=== PATIENT | female | born 1935 | race Caucasian/White ===

== ENCOUNTER 2024-08-06 02:31 | Inpatient (IN) | payer MEDICARE, SELFPAY ==
[2024-08-06] VITALS (8 sets, daily range): BP systolic 145–168; BP diastolic 68–89; PULSE 58–101; RESP 14–20; TEMP 36.1–36.5; O2SAT 95–100; BMI 30.1
--- NOTE | ~2024-08-06 | CT_ITS ---
CT abdomen pelvis w con Ordering provider: Carter Chester MD History: 89 years Female with . Abdominal pain, vomiting blood . Comparison: None. Technique: CT abdomen and pelvis with IV and without oral contrast. Automated exposure control and it erative reconstruction technique were employed. The dose-length product was 490.04 mGy-cm. Findings: VISUALIZED LOWER CHEST: Minimal dependent atelectatic changes.. UPPER ABDOMINAL ORGANS: Liver: Normal. Gallbladder: Normal. Spleen: Normal. Stomach/duodenum: Large paraesophageal hernia with organoaxial rotation of the stomach which is fluid -filled. Gastric outlet obstruction is not excluded. Further evaluation advised. Pancreas: Atrophic. Adrenals: Normal. Kidneys: Minimal fullness of the renal pelvis bilaterally. No definite ureteric stones. PELVIC ORGANS: The bladder is normal. BOWEL AND MESENTERY: Colon: No evidence of diverticulitis. Appendix is normal. Small Bowel: Normal. No obstruction. Peritoneum/mesentery: No free air or free fluid. No mesenteric lymphadenopathy. RETROPERITONEUM: Mild atheromatous disease of the abdominal aorta. No retroperitoneal lymphadenopat hy. MUSCULOSKELETAL: Superficial soft tissues: The superficial soft tissues are normal. Bones: Age appropriate degenerative changes of the spine. IMPRESSION: 1. Paraesophageal hernia with organoaxial rotation of the stomach and possible outlet obstruction fu rther evaluation advised. 2. Minimal fullness of the renal pelvis bilaterally with no definite stones. Follow-up advised. 3. No evidence of appendicitis, diverticulitis or intestinal obstruction Reviewed, dictated and finalized at location A. IMPRESSION: 1. Paraesophageal hernia with organoaxial rotation of the stomach and possible outlet obstruction further evaluation advised. 2. Minimal fullness of the renal pelvis bilaterally with no definite stones. F ollow-up advised. 3. No evidence of appendicitis, diverticulitis or intestinal obstruction
--- NOTE | ~2024-08-06 | XR_ITS ---
EXAMINATION: XR UGI w esoph water soluble DATE: 08/07/2024 09:43 INDICATION: Possible gastric outlet obstruction. Vomiting dark blood. TECHNIQUE: The patient drank water-soluble contrast. Fluoroscopic spot radiographs of the hypopharynx , esophagus, stomach and proximal small bowel were obtained. A total of 1101 fluoroscopic images were recorded. Fluoroscopy exposure time was 2.2 minutes. Total DAP was 15.438 mGycm^2. COMPARISON: CT dated 08/06/24 FINDINGS: The pharynx is symmetric and without evidence of mass lesion or mucosal irregularity. There is a prom inent nonobstructing cricopharyngeus muscle. The esophagus is normal without mass or stricture. Esoph ageal motility is within normal limits for age. There is a large sliding-type hiatal hernia which con tains the entire stomach. Contrast passes into the normal-appearing proximal small bowel with no mayela gaye outlet obstruction. There was no gastroesophageal reflux with provocative maneuvers. The stomach and proximal small bowel are otherwise unremarkable. IMPRESSION: 1. Large sliding-type hiatal hernia without evidence of gastroesophageal reflux or gastric outlet obs truction. Reviewed, dictated and finalized at location A. IMPRESSION: 1. Large sliding-type hiatal hernia without evidence of gastroesophageal reflux or gastric outlet obstruction.
[2024-08-06 03:34] LABS: Basophils Absolute Auto 0.1 K/mm3 (0.0-0.1); Basophils Percent Auto 0.7 % (0.2-1.2); Eosinophils Absolute Auto 0.1 K/mm3 (0-0.3); Eosinophils Percent Auto 0.9 % (0-4.4); Hematocrit 39.3 % (37.0-47.0); Hemoglobin 12.5 g/dL (12.0-15.0); Immature Granulocyte Absolute 0.02 K/mm3 (0.00-0.031); Immature Granulocyte Percent A 0.2 % (0-0.5); Lymphocytes Absolute Auto 1.22 K/mm3 (0.9-3.2); Lymphocytes Percent Auto 14.4 % (18.3-44.2); Mean Corpuscular HGB Conc 31.8 g/dl (32-36); Mean Corpuscular Hemoglobin 29.3 pg (26-34); Mean Platelet Volume 9.5 fl (7.4-10.4); Monocytes Absolute Auto 0.8 K/mm3 (0.1-0.6); Monocytes Percent Auto 9.8 % (2.6-8.5); Neutrophils Absolute Auto 6.3 K/mm3 (1.3-6.7); Platelet Count Result 245 k/mm3 (150-375); Red Blood Count 4.27 M/mm3 (4.2-5.4); Red Cell Distribution Width 12.5 % (11.5-14.5); White Blood Count 8.5 K/mm3 (4.5-10.0)
[2024-08-06] MEDS: SODIUM CHLORIDE 0.9% IV 1,000 ML 999 ML IV CONT (03:40)
[2024-08-06] MEDS: PANTOPRAZOLE SODIUM IV 40 MG VIAL IV PUSH ×2 (03:40→21:06)
[2024-08-06] MEDS: ONDANSETRON INJ 4 MG/2 ML VIAL IV PUSH (03:40)
[2024-08-06 03:43] LABS: Alanine Aminotransferase 16 U/L (6-35); Albumin Level 4.1 g/dL (3.5-5.1); Alkaline Phosphatase 74 U/L (38-126); Anion Gap 9 mmol/L (4-12); Aspartate Amino Transferase 28 U/L (14-36); Bilirubin,Total 0.5 mg/dL (0.2-1.3); Blood Urea Nitrogen 16 mg/dL (7-17); Calcium 8.9 mg/dL (8.4-10.2); Carbon Dioxide 26 mmol/L (22-30); Chloride 100 mmol/L (98-107); Estimated CRCL calculation 28 ml/min; Estimated Glomerular Filt Rate 47; Glucose 127 mg/dL (65-110); Lipase 744 U/L (23-300); Potassium 3.7 mmol/L (3.4-5.0); Sodium 135 mmol/L (137-145)
--- OUTSIDE RECORDS SUMMARY | 2024-08-06 03:50 | XMS_ITS | Encounter Summary ---
Author Organization [facility] Address [address] [place] [address] Care Team Providers Care Drainlayer Name Role Phone Taty Baker APRN-HAKAN Primary Care Provider + Reinaldo Solorzano MD Unavailable Pato Munguia MD Unavailable [phone] Encounter Details Date Type Department Care Team (Late Contact Info) Description 10/22/[address] [phone] Taty Baker APRN-HAKAN [address] [place] [address] Social History Tobacco Use Types Packs/Day Years Used Date Smoking Tobacco: Former Cigarettes Smokeless Tobacco: Never Alcohol Use Standard Drinks/Week Comments No 0 (1 standard drink = 0.6 oz pur e alcohol) PHQ-2 Answer Date Recorded Patient Health Questionnaire-2 Score 0 10/20/2023 Comments No Sex and Gender Information Value Date Recorded Sex Assigned at Not on file 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 Gender Identity Not on file Sexual Orientation Not on file documented as of this encounter Plan of Treatment Upcoming Encounters Date Type Department Care Team (Late Contact Info) Description 08/30/2024 8:15 AM CDT Office Visit [address] [phone] Taty Baker APRN-CNP [address] [place] [phone] documented as of this encounter Visit Diagnoses Not on filedocumented in this encounter Care Teams Drainlayer Relationship Specialty Start Date End Date Taty Baker APRN-HAKAN PCP - General Nurse Practitioner Family 06/20/21 Reinaldo Solorzano MD [address] [place] [phone] Orthopedic Surgery Orthopedic Surgery 10/20/23 Pato Munguia MD [address] [id number] Gastroenterology 10/20/23 documented as of this encounter
--- OUTSIDE RECORDS SUMMARY | 2024-08-06 03:50 | XMS_ITS | Continuity of Care Document ---
Author Organization [facility] Address [address] [place] [address] Phone Care Team Providers Care Active Directory Systems Administrator Name Role Phone Gardenia Baumann MD Unavailable Unavailable Allergies, Adverse Reactions, Alerts Substance Reaction Status Criticality No Known Allergies Active No Inform ation Medications Medication Instructions Dosage Effective Dates (start - stop) Status Comments ATORVASTATIN CALCIUM (unknown strength) Not Available - Active Metamucil 3.4 gram/5.4 gram oral powder - Active Vitamin D3 1,000 unit capsule - Active Vitamin B-12 ER 2,000 mcg tablet,extended release - Active CALCIUM (unknown strength) Not Available - Active CELEXA (unknown strength) Not Available - Active LEVOTHYROXINE SODIUM (unknown strength) Not Available - Active LORAZEPAM (unknown strength) Not Available - Active Procedures Procedure Date OFFICE/OUTPATIENT VISIT, EST DRAIN/INJECT, JOINT/BURSA Kenalog Triamcinolone acetonide inj Knee X-Ray 4 Or More Views (AP, LAT, OBL , OBL) PHE Costs Inj Facet Lumbar Or Sacral 1 Level Inj Facet Lumbar Or Sacral 2nd Level Jan Inj Facet Lumbar Or Sacral 3rd Or More L evels OFFICE/OUTPATIENT VISIT, EST SI Joint Injection Arthrogram Of SI Join t OFFICE/OUTPATIENT VISIT, EST MRI LUMBAR SPINE W/O DYE OFFICE/OUTPATIENT VISIT, EST INJ FORAMEN EPIDURAL L/S INJ FORAMEN EPIDURAL ADD-ON OFFICE/OUTPATIENT VISIT, EST Bonus OFFICE/OUTPATIENT VISIT, EST DRAIN/INJECT, JOINT/BURSA Kenalog Triamcinolone acetonide inj Knee X-Ray 3 Views (AP, LAT, Merchant) J Knee X-Ray 3 Views (AP, LAT, Merchant) J POSTOP FOLLOW-UP VISIT REMOVAL OF KNEECAP KO Adj Joints Prefab Off The Shelf INJ TRIGGER POINT, /2 MUSCL Kenalog Triamcinolone acetonide inj Ultrasound Guidance For Injection Aspira tion Or Biopsy Pre Operative Visit OFFICE/OUTPATIENT VISIT, EST OFFICE/OUTPATIENT VISIT, EST Knee X-Ray 3 Views (AP, LAT, Merchant) O OFFICE/OUTPATIENT VISIT, EST DRAIN/INJECT, JOINT/BURSA Celestone 3 MG Betamethasone acet&sod ph osp INJ TRIGGER POINT, /2 MUSCL Ultrasound Guidance For Injection Aspira tion Or Biopsy Kenalog Triamcinolone acetonide inj OFFICE/OUTPATIENT VISIT, EST Wrist X-Ray 2 View (PA, Clenched Fists) OFFICE/OUTPATIENT VISIT, EST DESTROY LUMB/SAC FACET JNT DESTROY L/S FACET JNT ADDL DESTROY LUMB/SAC FACET JNT DESTROY L/S FACET JNT ADDL OFFICE/OUTPATIENT VISIT, EST POSTOP FOLLOW-UP VISIT Wrist X-Ray 2 View (PA, Clenched Fists) Suede Lacing Wrist Forearm Inj Facet Lumbar Or Sacral 1 Level Inj Facet Lumbar Or Sacral 2nd Level Mar Inj Facet Lumbar Or Sacral 3rd Or More L evels Inj Facet Lumbar Or Sacral 1 Level Inj Facet Lumbar Or Sacral 2nd Level Mar Inj Facet Lumbar Or Sacral 3rd Or More L evels OFFICE/OUTPATIENT VISIT, EST APPLICATION OF FOREARM CAST SACAF Cast sup sht arm adult fbrgl Wrist X-Ray 2 View (PA, Clenched Fists) OFFICE/OUTPATIENT VISIT, EST POSTOP FOLLOW-UP VISIT Wrist X-Ray 2 View (PA, Clenched Fists) OFFICE/OUTPATIENT VISIT, EST Wrist X-Ray 2 View (PA, Clenched Fists) TREAT FRACTURE RADIUS/ULNA SACAF Cast sup sht arm adult fbrgl PT EVALUATION Pain doc pos and plan Doc funct and care plan PT FALLS ASSESS-DOCD LE1/YR Mobility Current Status Mobility Goal Status THERAPEUTIC ACTIVITIES SELF CARE MNGMENT TRAINING OFFICE/OUTPATIENT VISIT, EST Inj Facet Lumbar Or Sacral 1 Level Inj Facet Lumbar Or Sacral 2nd Level Nov Inj Facet Lumbar Or Sacral 3rd Or More L evels Inj Facet Lumbar Or Sacral 1 Level Inj Facet Lumbar Or Sacral 2nd Level Nov Inj Facet Lumbar Or Sacral 3rd Or More L evels MRI LUMBAR SPINE W/O DYE OFFICE/OUTPATIENT VISIT, EST OFFICE/OUTPATIENT VISIT, EST Inj Facet Lumbar Or Sacral 1 Level Inj Facet Lumbar Or Sacral 2nd Level August Inj Facet Lumbar Or Sacral 3rd Or More L evels POSTOP FOLLOW-UP VISIT Knee X-Ray 3 Views (AP, LAT, Merchant) M OFFICE/OUTPATIENT VISIT, NEW Lumbar X-Ray 2 Or 3 Views (AP, LAT) POSTOP FOLLOW-UP VISIT Knee X-Ray 3 Views (AP, LAT, Merchant) M POSTOP FOLLOW-UP VISIT Knee X-Ray 3 Views (AP, LAT, Merchant) F TOTAL KNEE ARTHROPLASTY DOC ORDER GIVEN STOP ANTIBIO DOC ORDER GIVEN VTE PROPHYLX Pre Operative Visit Knee X-Ray 2 Views (AP, LAT) X-RAYS, BONE LENGTH STUDIES OFFICE/OUTPATIENT VISIT, EST OFFICE/OUTPATIENT VISIT, EST MRI JNT OF LWR EXTRE W/O DYE OFFICE/OUTPATIENT VISIT, EST OFFICE/OUTPATIENT VISIT, EST DRAIN/INJECT, JOINT/BURSA Kenalog Triamcinolone acetonide inj THERAPEUTIC EXERCISES Elec stim other than wound THERAPEUTIC EXERCISES Elec stim other than wound Body Pos Current Status Body Pos Goal Status Pain doc pos and plan Doc funct and care plan PT FALLS ASSESS-DOCD LE1/YR PT EVALUATION THERAPEUTIC ACTIVITIES Elec stim other than wound DRAIN/INJECT, JOINT/BURSA Synvisc Per 1MG DRAIN/INJECT, JOINT/BURSA Synvisc Per 1MG OFFICE/OUTPATIENT VISIT, EST DRAIN/INJECT, JOINT/BURSA Synvisc Per 1MG Knee X-Ray 4 Or More Views (AP, LAT, OBL , OBL) OFFICE/OUTPATIENT VISIT, NEW DRAIN/INJECT, JOINT/BURSA Kenalog Triamcinolone acetonide inj Knee X-Ray 4 Or More Views (AP, LAT, OBL , OBL) Advance Directives Directive Yes / No Effective Date File Name Life Support Not Answered N/A N/A Other Directive No N/A N/A WARNING:The information contained in this section is historical and is provided for information only and does not constitute a legal document or any assurance that the information is still accurate. Please verify the information with the iqbal of the legal document before using it for clinical purposes. Encounters Encounter Description Practice Location Reason(s) For Visit Diagnoses Date Provider Providers Copied on Encounter [facility], [address] [place] [address], [id number], tel:[phone] [facility] No Information 0 Pastor Varner. [address] [place] [address], [address], [id number], . tel:[phone] OFFICE/OUTPA TIENT VISIT, [facility], [address] [place] [address], [id number], tel:[phone] [facility] Primary osteoarthritis of left kneeStatus post total right knee replacement 0 Pastor Varner. [address] [place] [address], [id number], . tel:[phone] Referring Provider: Gardenia Baumann, [address] [place] [address], [id number]. tel:[phone] [facility], [address] [place] [address], [id number], tel:[phone] [facility] No Information 9 Connor Ariza. [address] [place], [place], [id number], [place]. tel:[phone] Referring Provider: To Ryan, [address] [place], [address]. tel:[phone] OFFICE/OUTPA TIENT VISIT, EST [facility], [address] [place] [address], [id number], [place] tel:[phone] [facility] LumbagoOther intervertebral disc degeneration of lumbar regionSacroili itis, not elsewhere classifiedSpon dylosis without myelopathy or radiculopathy, lumbar region 9 Connor Ariza. [address] [place], [id number], [place]. tel:[phone] Referring Provider: Delilah Murdock, [facility] [employer] [address] [place] [address], [address]. tel:[phone] [facility], [address] [place] [address], [id number], [place] tel:[phone] [facility] No Information Connor Ariza. [address], [place], [place], [id number], [place]. tel:[phone] Referring Provider: To Ryan, [address], [place], [address]. tel:[phone] OFFICE/OUTPA TIENT VISIT, EST [facility], [address] [place] [address], [id number], [place] tel:[phone] [facility] LumbagoAdolesc ent idiopathic scoliosis of lumbar regionOther intervertebral disc degeneration of lumbar regionSacroili itis, not elsewhere classifiedSpon dylosis without myelopathy or radiculopathy, lumbar region 9 Connor Ariza. [address], [place], [place], [id number], [place]. tel:[phone] Referring Provider: Delilah Murdock, [facility] [facility], [place], [address]. tel:[phone] [facility], [address] [place] [address], [id number], [place] tel:[phone] [facility] No Information Connor Ariza. [address] [place], [id number], [place]. tel:[phone] Referring Provider: To Ryan, [address] [place], [address]. tel:[phone] OFFICE/OUTPA TIENT VISIT, EST [facility], [address] [place] [address], [id number], [place] tel:[phone] [facility] LumbagoOther intervertebral disc degeneration of lumbar regionAdolesce nt idiopathic scoliosis of lumbar regionSpondylo sis without myelopathy or radiculopathy, lumbar region Connor Ariza. [address] [place], [id number], [place]. tel:[phone] Referring Provider: Self Referred, [address] [address], [place], [address]. tel:[phone] [facility], [address] [place] [address], [id number], [place] tel:[phone] [facility] No Information Connor Ariza. [address] [place], [id number], [place]. tel:[phone] Referring Provider: To Ryan, [address] [place], [address]. tel:[phone] OFFICE/OUTPA TIENT VISIT, EST [facility], [address] [place] [address], [id number], [place] tel:[phone] [facility] LumbagoAdolesc ent idiopathic scoliosis of lumbar regionOther intervertebral disc degeneration of lumbar regionSacroili itis, not elsewhere classifiedSpon dylosis without myelopathy or radiculopathy, lumbar region Connor Ariza. [address] [facility] [place], [id number], [place]. tel:[phone] Referring Provider: Self Referred, [address] [address], [place], [address]. tel:[phone] [facility], [address] [place] [address], [id number], [place] tel:[phone] [facility] Status post total right knee replacement 8 Pastor Aliciandy. [address] [place] [address], [place] [address], [place], [place], [id number], [place]. tel:[phone] OFFICE/OUTPA TIENT VISIT, EST [facility], [address] [place] [address], [id number], [place] tel:[phone] [facility] Closed displaced transverse fracture of right patella, sequelaStatus post total right knee replacementPri randell osteoarthritis of left knee Pastor Varner. [address] [place] [address], [place] [address], [place], [place], [id number], [place]. tel:[phone] Referring Provider: Delilah Murdock, [address] [place] [address], [address]. tel:[phone] [facility], [address] [place] [address], [id number], [place] tel:[phone] [facility] Status post total right knee replacementClo sed displaced transverse fracture of right patella, sequela 7 Pastor Varner. [address] [place] [address], [facility] [address], [place], [place], [id number], [place]. tel:[phone] Referring Provider: Delilah Murdock, [address] [place] [address] [place] [address], [address]. tel:[phone] [facility], [address] [place] [address], [id number], [place] tel:[phone] [facility] No Information Pastor Varner. [facility], [address], [id number], [place]. tel:[phone] Referring Provider: Delilah Murdock, [address] [facility] [address], [place], [address]. tel:[phone] [facility], [address] [place] [address], [id number], [place] tel:[phone] [facility] No Information Pastor Varner. [address] [place] [address], [place] [address], [place], [id number], [place]. tel:[phone] Referring Provider: Gardenia Baumann, [address] [place] [address] Suite [facility], [place], [address]. tel:[phone] [facility], [address] [place] [address], [id number], [place] tel:[phone] [facility] Adolescent idiopathic scoliosis of lumbar regionLumbagoS acroiliitis, not elsewhere classified Connor Ariza. [address] [place] [address], [id number], [place]. tel:[phone] Referring Provider: Self Referred, [address] [address], [place], [address]. tel:[phone] [facility], [address] [place] [address], [id number], [place] tel:[phone] [facility] Closed displaced transverse fracture of right patella, initial encounterStatu s post total right knee replacement Pastor Varner. [address] [place] [address], [place] [address], [place], [place], [id number], [place]. tel:[phone] Referring Provider: Delilah Murdock, [address] [facility] [address], [place], [address]. tel:[phone] OFFICE/OUTPA TIENT VISIT, [facility], [address] [place], [place], [id number], [place] tel:[phone] [facility] Adolescent idiopathic scoliosis of lumbar regionLumbagoS acroiliitis, not elsewhere classifiedSpin al enthesopathy of lumbosacral region 7 Connor Ariza. [address] [facility] [address], [place], [place], [id number], [place]. tel:[phone] Referring Provider: Self Referred, [address] [address], [place], [address]. tel:[phone] OFFICE/OUTPA TIENT VISIT, [facility], [address] [place] [address], [id number], [place] tel:[phone] [facility] Status post total right knee replacementClo sed displaced transverse fracture of right patella, initial encounter 7 Pastor Varner. [address] [facility], [address], [place], [place], [id number], [place]. tel:[phone] Referring Provider: Gardenia Baumann, [address] [facility] [address], [place], [address]. tel:[phone] OFFICE/OUTPA TIENT VISIT, [facility], [address] [place], [place], [id number], [place] tel:[phone] [facility] Closed Colles' fracture of right radius, sequela 7 Mariya Encarnacion. [address] [place] [address], [id number], [place]. tel:[phone] Referring Provider: Self Referred, [address] [address], [place], [address]. tel:[phone] [facility], [address] [place] [address], [id number], [place] tel:[phone] [facility] LumbagoSpondyl osis without myelopathy or radiculopathy, lumbar regionSacroili itis, not elsewhere classifiedSpin al enthesopathy of lumbosacral region Connor Ariza. [address], [place], [place], [id number], [place]. tel:[phone] Referring Provider: Rodriguez Lopez MD, [address] [facility] [address], [place], [address]. tel:[phone] OFFICE/OUTPA TIENT VISIT, EST [facility], [address] [place] [address], [id number], [place] tel:[phone] [facility] No Information Mariya Encarnacion. [address] [place] [address] [place], [place], [id number], [place]. tel:[phone] Referring Provider: Cameron Jones, [address] [place] [address] [place], [address]. tel:[phone] OFFICE/OUTPA TIENT VISIT, EST [facility], [address] [place] [address], [id number], [place] tel:[phone] [facility] No Information 7 Connor Ariza. [address], [place], [place], [id number], [place]. tel:[phone] Referring Provider: Self Referred, [address] [address], [place], [address]. tel:[phone] [facility], [address] [place] [address], [id number], [place] tel:[phone] [facility] No Information 7 Connor Ariza. [address] [place], [place], [id number], [place]. tel:[phone] Referring Provider: To Ryan, [address] [facility], [place], [address]. tel:[phone] [facility], [address] [place] [address], [id number], tel:[phone] [facility] No Information 7 Connor Ariza. [address] [place], [place], [id number], [place]. tel:[phone] Referring Provider: To Ryna, [address] [facility] [address], [place], [address]. tel:[phone] OFFICE/OUTPA TIENT VISIT, EST [facility], [address] [place] [address], [id number], tel:[phone] [facility] LumbagoAdolesc ent idiopathic scoliosis of lumbar regionSpondylo sis without myelopathy or radiculopathy, lumbar regionOther intervertebral disc degeneration of lumbar region Shefali Garza. [address], [place], [place], [id number], [place]. tel:[phone] Referring Provider: To Ryan, [address] [facility], [place], [address]. tel:[phone] [facility], [address] [place] [address], [id number], [place] tel:[phone] [facility] Closed Colles' fracture of right radius with routine healing 7 Mariya Encarnacion. [facility] [place], [id number], [place]. tel:[phone] Referring Provider: Alysha Meraz, [facility] [address], [place], [address]. tel:[phone] [facility], [address] [place] [address] [place], [id number], tel:[phone] [facility] No Information Mariya Encarnacion. [facility] Ana María Lemons[place], [id number], . tel:[phone] Referring Provider: To Ryan, [address] [place] [address] [place], [address]. tel:[phone] [facility], [address] [place] [address], [id number], tel:[phone] [facility] No Information Connor Ariza. [facility] [address] [facility] [place], [place], [id number], [place]. tel:[phone] Referring Provider: To Ryan, [address] [place] [address], [address]. tel:[phone] [facility], [address] [place] [address], [id number], tel:[phone] [facility] No Information Connor Ariza. [address] [place] [address], [id number], [place]. tel:[phone] Referring Provider: To Ryan, [address] [facility] [place], [address]. tel:[phone] OFFICE/OUTPA TIENT VISIT, EST [facility], [address] [place] [address], [id number], tel:[phone] [facility] Closed Colles' fracture of right radius with routine healing Mariya Encarnacion. [facility] [place] [place], [id number], [place]. tel:[phone] Referring Provider: Cameron Jones, [place] [facility] [place], [address]. tel:[phone] OFFICE/OUTPA TIENT VISIT, EST [facility], [address] [place] [address], [id number], [place] tel:[phone] [facility] Adolescent idiopathic scoliosis of lumbar regionLumbagoO ther intervertebral disc degeneration of lumbar regionSpondylo sis without myelopathy or radiculopathy, lumbar region - 6 Ryan To. [address] [facility] A, [place], [place], [id number], [place]. tel:[phone] Referring Provider: Self Referred, [address] [address], [place], [address]. tel:[phone] [facility], [address] [place] [address], [id number], [place] tel:[phone] [facility] Closed Colles' fracture of right radius, initial encounter 6 Mariya Encarnacion. [facility] [address], [place], [place], [id number], [place]. tel:[phone] Referring Provider: Cameron Jones, [facility] [address], [place], [address]. tel:[phone] OFFICE/OUTPA TIENT VISIT, EST [facility], [address] [place] [address], [id number], [place] tel:[phone] [facility] Closed Colles' fracture of right radius, initial encounter -201 6 Mariyamaikol Tinocole. [facility] [address], [place], [place], [id number], [place]. tel:[phone] Referring Provider: Siomara Braden, [address] [facility] [address], [place], [address]. tel:[phone] [facility], [address] [place] [address], [id number], [place] tel:[phone] [facility] No Information 6 Shefali Novoana. [address], [place], [place], [id number], [place]. tel:[phone] [facility], [address] [place] [address], [id number], [place] tel:[phone] [facility] Lumbago Sep-2 6 [place] Silvestre Acevedo. [address], [place], [place], [id number], [place]. tel:[phone] Referring Provider: To Ryan, [address] [place] [facility] [place], [address]. tel:[phone] OFFICE/OUTPA TIENT VISIT, EST [facility], [address] [place] [address], [id number], [place] tel:[phone] [facility] LumbagoSpondyl osis without myelopathy or radiculopathy, lumbar regionOther intervertebral disc degeneration of lumbar regionAdolesce nt idiopathic scoliosis of lumbar region Sep- 6 Shefali Novoana. [address], [place], [place], [id number], [place]. tel:[phone] Referring Provider: To Ryan, [address] [place] [facility] [place], [address]. tel:[phone] [facility], [address] [place] [address], [id number], [place] tel:[phone] [facility] No Information 6 Connor Ariza. [address] [facility] [place], [place], [id number], [place]. tel:[phone] Referring Provider: To Ryan, [address] [place] [facility] [place], [address]. tel:[phone] [facility], [address] [place] [address], [id number], [place] tel:[phone] [facility] No Information 6 Connor To. [address] [facility] [place], [place], [id number], [place]. tel:[phone] Referring Provider: To Ryan, [address] [facility] [place], [address]. tel:[phone] [facility], [address] [place] [address], [id number], [place] tel:[phone] [facility] No Information Ryan To. [address] [facility] [place], [id number], [place]. tel:[phone] Referring Provider: To Ryan, [address] [facility] [place], [address]. tel:[phone] OFFICE/OUTPA TIENT VISIT, EST [facility], [address] [place] [address], [id number], [place] tel:[phone] [facility] Adolescent idiopathic scoliosis of lumbar regionLumbagoO ther intervertebral disc degeneration of lumbar regionSpondylo sis without myelopathy or radiculopathy, lumbar region 6 Ryan To. [address] [facility] [place], [place], [id number], [place]. tel:[phone] Referring Provider: Self Referred, [address] [address], [place], [address]. tel:[phone] OFFICE/OUTPA TIENT VISIT, EST [facility], [address] [place] [address], [id number], [place] tel:[phone] [facility] LumbagoSpondyl osis without myelopathy or radiculopathy, lumbar regionOther intervertebral disc degeneration of lumbar regionAdolesce nt idiopathic scoliosis of lumbar region 6 Shefali Garza. [address], [place], [place], [id number], [place]. tel:[phone] Referring Provider: To Ryan, [address] [facility] [place], [address]. tel:[phone] [facility], [address] [place] [address], [id number], [place] tel:[phone] [facility] No Information 6 Connor Ariza. [address] [facility] [place], [id number], [place]. tel:[phone] Referring Provider: Self Referred, [address] [address], [place], [address]. tel:[phone] [facility], [address] [place] [address], [id number], [place] tel:[phone] [facility] Status post total right knee replacement 6 Pastor Varner. [facility], [address], [place], [place], [id number], [place]. tel:[phone] Referring Provider: Rodriguez Lopez MD, [address] [place] [address], [place], [address]. tel:[phone] OFFICE/OUTPA TIENT VISIT, [facility], [address] [place] [address], [id number], [place] tel:[phone] [facility] LumbagoOther intervertebral disc degeneration of lumbar regionSpondylo sis without myelopathy or radiculopathy, lumbar regionAdolesce nt idiopathic scoliosis of lumbar region 6 Connor Ariza. [address] [facility] [place], [id number], [place]. tel:[phone] Referring Provider: Gardenia Baumann, [address] [facility] [address], [place], [address]. tel:[phone] [facility], [address] [place] [address], [id number], [place] tel:[phone] [facility] Status post total right knee replacement 6 Pastor Varner. [address] [facility], [address], [id number], [place]. tel:[phone] Referring Provider: Gardenia Baumann, [address] [facility] Suite [facility], [place], [address]. tel:[phone] -[facility], [facility] [place], [id number], [place] tel:[phone] [facility] Status post total right knee replacementPri randell osteoarthritis of right knee 6 Pastor Varner. [address] [facility], [place] [address], [place], [place], [id number], [place]. tel:[phone] Referring Provider: Rodriguez Lopez MD, [address] [facility] [address], [place], [address]. tel:[phone] [facility], [address] [place] [address], [id number], [place] tel:[phone] [facility] No Information 6 Pastor Varner. [address] [facility], [place] [address], [place], [place], [id number], [place]. tel:[phone] Referring Provider: Rodriguez Lopez MD, [address], [place], [address]. tel:[phone] [facility], [address] [place] [address], [id number], [place] tel:[phone] [facility] Primary osteoarthritis of right kneeStatus post total right knee replacement Fe-0 6 Pastor Varner. [address] [place] [address], [place] [address], [place], [place], [id number], [place]. tel:[phone] Referring Provider: Rodriguez Lopez MD, [address], [place], [address]. tel:[phone] OFFICE/OUTPA TIENT VISIT, EST [facility], [facility] [place], [place], [id number], [place] tel:[phone] [facility] Primary osteoarthritis of right knee 6 Pastor aVrner. [address] [facility], [facility] [address], [place], [place], [id number], [place]. tel:[phone] Referring Provider: Massimo Yo, [facility] [address], [place], [address]. tel:[phone] OFFICE/OUTPA TIENT VISIT, [facility], [facility] [place], [place], [id number], [place] tel:[phone] [facility] No Information 6 Sanaz Keys. [address] [facility], [address], [place], [place], [id number], [place]. tel:[phone] Referring Provider: Self Referred, [address] [address], [place], [address]. tel:[phone] [facility], [address] [place] [address], [id number], [place] tel:[phone] [facility] No Information 6 Sanaz Keys. [address] [facility], [address], [place], [place], [id number], [place]. tel:[phone] Referring Provider: Massimo Yo, [address] [facility] [address], [place], [address]. tel:[phone] OFFICE/OUTPA TIENT VISIT, [facility], [address] [place] [address], [id number], [place] tel:[phone] [facility] Primary osteoarthritis of right kneeRight knee pain 3 5 Courtney Butcher. [address] [place] [address], [facility] [address], [place], [id number], [place]. tel:[phone] Referring Provider: Rodriguez Lopez MD, [address], [place], [address]. tel:[phone] OFFICE/OUTPA TIENT VISIT, EST -[facility], [address] [place] [address], [id number], [place] tel:[phone] [facility] Primary osteoarthritis of right knee 0- 5 Courtney Butcher. [address] [place] [address], [facility] [address], [id number], [place]. tel:[phone] Referring Provider: Self Referred, [address] [address], [place], [address]. tel:[phone] [facility], [address] [place] [address], [id number], [place] tel:[phone] [facility] No Information 5 Tico Rausch. [address] [place] [address], [id number], [place]. tel:[phone] Referring Provider: Chet Merino, [address] [place] [address] [address], [place], [address]. tel:[phone] [facility], [address] [place] [address], [id number], [place] tel:[phone] [facility] No Information 5 Tico Rausch. [address] [place] [address], [id number], [place]. tel:[phone] Referring Provider: Chet Merino, [address] [place] [address] [address], [place], [address]. tel:[phone] -[facility], [address] [place], [place], [id number], [place] tel:[phone] [facility] No Information Tico Rausch. [address] [place], [place], [id number], [place]. tel:[phone] Referring Provider: Chet Merino, [address] [place] [address] [address], [place], [address]. tel:[phone] -[facility], [address] [place] [address], [id number], [place] tel:[phone] [facility] No Information Sanaz Keys. [address] [place] [address], [facility] [address], [place], [place], [id number], [place]. tel:[phone] Referring Provider: Massimo Yo, [address] [place] [address] [address], [place], [address]. tel:[phone] [facility], [address] [place] [id number], [place] tel:[phone] [facility] No Information Sanaz Keys. [facility], [facility] [address], [place], [place], [id number], [place]. tel:[phone] Referring Provider: Massimo Yo, [facility] [facility] [address], [place], [address]. tel:[phone] OFFICE/OUTPA TIENT VISIT, EST -[facility], [address] [place] [address], [id number], [place] tel:[phone] [facility] Idiopathic scoliosis 5 Negra Sheehan. [address] [place] [address], [address], [place]. tel:[phone] Referring Provider: Rodriguez Lopez MD, [address], [place], [address]. tel:[phone] [facility], [address] [place] [address], [id number], tel:[phone] [facility] No Information 5 Sanaz Keys. [address] [place] [address], [address], [place], [id number], . tel:[phone] Referring Provider: Massimo Yo, [address] [place] [address] [address], [place], [address]. tel:[phone] OFFICE/OUTPA TIENT VISIT, [facility], [address] [place] [address], [id number], tel:[phone] [facility] No Information Courtney Butcher. [address] [place] [address], [address], [place], [place], [id number], . tel:[phone] Referring Provider: Massimo Sanaz, [address] [place] [address] [address], [place], [address]. tel:[phone] Family History Family Member Type Diagnosis Age At Onset Problem (finding) Family history of Arthr itis Problem (finding) Family history of Cance r, unknown Payers Payer name Insurance type Covered democrat ID Authoreunice tiblu(s) Medicare MB [id number] [facility] [id number] Social History Type Description Quantity Date Captured Comments Alcohol Use Details No Caffeine Use Details Unknown Tobacco Use Status No Information Smoking Status Former smoker Sex Female Chief Complaint And Reason For Visit No Information Reason For Referral Reason For Referral No Information History Of Present Illness Encounter Date Complaint History Of Prese nt Illness No Information Functional Status Date Functional Assessmen t No Information Instructions Date Instruction Additional Infor mation No Information Assessments Type Assessment Date No Information Patient Care Teams Name Effective Dates (start - stop) Status Members No Information
--- OUTSIDE RECORDS SUMMARY | 2024-08-06 03:50 | XMS_ITS | Clinical Summary ---
Author Organization [facility] Address [address] [place] [address] Care Team Providers Care Forestry Consultant Name Role Phone Taty Baker APRN-EVENT AV OPERATOR Primary Care Provider + Reinaldo Solorzano MD Unavailable Pato Munguia MD Unavailable [phone] Source Comments [facility],non-owned Affiliates and Associated Physician Practices is amultiple site organization consisting of ambulatory clinics and hospital sitesin [place], [place], [place] and [place]. This disclosure is being madepursuant to the Care Everywhere program and may not contain all information available regarding this patient. Last updated 17.[facility] Allergies No known active allergies Medications * Be aware that medications may not be up to date on this document. Alwaysverify current medications with the patient. METAMUCIL FIBER PO Take 1 tablet by mouth once daily Active Cyanocobalamin (B-12) 250 MCG Take 1 (one) tablet by mouth once daily Active Cholecalciferol (Vitamin D) 50 MCG (1999 UT) capsule Take 1 (one) capsule by mouth once daily 90 capsule 1 3 Active amoxicillin-clav ulanate (Augmentin) 875-125 MG tablet Take 1 (one) tablet by mouth 2 times daily with morning and evening meal 20 tablet 4 Active Additional Information Patient not taking.Reported on 11/19/2023 fluticasone propionate (Flonase) 50 MCG/ACT nasal spray [place] 2 (two) sprays into each nostril once daily 16 g 4 Active lactobacillus acidophilus (Floranex) tablet Take 1 (one) tablet by mouth 3 times daily 90 tablet 4 Active levothyroxine (Synthroid) 75 MCG tablet Take 1 (one) tablet by mouth once daily 90 tablet 1 4 Active atorvastatin (Lipitor) 10 MG tablet TAKE 1 TABLET(10 MG) BY MOUTH DAILY 90 tablet 1 4 Active citalopram (CeleXA) 20 MG tablet Take 1 (one) tablet by mouth once daily 90 tablet 1 4 Active prednisoLONE acetate (Pred Forte) 1 % ophthalmic suspension Instill 1 (one) drop into both eyes 3 times daily 4 Active moxifloxacin (Vigamox) 0.5 % ophthalmic solution Instill 1 (one) drop into both eyes as directed Prior surgery 4 Active flurbiprofen 0.03% (Ocufen) 0.03 % ophthalmic solution Instill 1 (one) drop into both eyes every 30 minutes (Only used for the eye surgery) 4 Active psyllium (Metamucil) 58.6 % powder Take 1 (one) packet by mouth once daily For pocket on colon Active LORazepam (Ativan) 0.5 MG tablet TAKE 1 TABLET BY MOUTH EVERY 12 HOURS NEEDED FOR ANXIETY 60 tablet 4 Active Active Problems Problem Noted Date Diagnosed Date CKD (chronic kidney disease) stage 3, GFR 30-59 ml/min 10/20/2023 Palpitations 01/01/2020 Chronic low back pain 02/18/2017 Chronic pain of right knee 02/18/2017 Pediculosis 12/22/2016 Vitamin D deficiency disease 09/17/2016 Diverticulosis of large intestine without hemorr lorelei 01/06/2016 Gastroesophageal reflux disease with esophagitis 01/06/2016 Knee joint replacement status 05/14/2015 Osteopenia 08/20/2014 Overview (10/20/2023): DEXA 06/2014 T=-1.7 Anxiety state 10/05/2012 Overview (01/03/2015): Benign paroxysmal positional vertigo 10/05/2012 Esophageal reflux 10/05/2012 Other and unspecified hyperlipidemia 10/05/2012 Hypothyroidism 10/05/2012 Overview (01/03/2015): Disorder of bone and cartilage 10/05/2012 Overview (01/03/2015): Resolved Problems Problem Noted Date Diagnosed Date Resolved Date Scabies 12/22/2016 11/17/2023 Immunizations Immunization Administration Dates Next Due FLU VACCINE QUAD IIV4 SPLIT 0.25 ML IM 9 FLU VACCINE TRI IIV3 SPLIT IM (FLUVIRIN) 013 FLU, HISTORIC VACCINE 01/26/2022 INFLUENZA VACCINE 01/20/2013 INFLUENZA VACCINE, HIGH-DOSE , QUADR. (FLUZONE HIGH-DOSE QUADRIVALENT; 65Y+), 0.7 ML (HD-IIV4) 01/26/2022 INFLUENZA VACCINE, QUADR. (A FLURIA, FLUZONE QUADRIVALENT; 6MO+) (IIV4) 02/03/2021 MODERNA SARS-COV-2 COVID-19 VACCINE 0.25ML 03/18 PNEUMOCOCCAL PPSV23 01/03/2005 Pneumococcal Pcv13 Conj 06/20/2021 ZOSTER HISTORIC VACCINE 01/03/2010 ZOSTER VACCINE, LIVE 01/03/2010 Family History Medical History Relation Name Comments Cancer - Other Father Cancer - Other Mother Relation Name Status Comments Father Mother Social History Tobacco Use Types Packs/Day Years Used Date Smoking Tobacco: Former Cigarettes Smokeless Tobacco: Never Tobacco Cessation:Counseling Given: Not Answered Alcohol Use Standard Drinks/Week Comments No 0 (1 standard drink = 0.6 oz pur e alcohol) PHQ-2 Answer Date Recorded Patient Health Questionnaire-2 Score 0 11/19/2023 Comments No Sex and Gender Information Value Date Recorded Sex Assigned at Not on file Legal Sex Female 9:59 PM POST ACUTE CARE NURSE Gender Identity Not on file Sexual Orientation Not on file Last Filed Vital Signs Vital Sign Reading Time Taken Comments Blood Pressure 153/85 11/19/2023 11:48 AM CDT Pulse 62 11/19/2023 11:42 AM CDT Temperature 36.9 C (98.4 F) 11/19/2023 11:42 AM CDT Respiratory Rate - - Oxygen Saturation 95% 11/19/2023 11:42 AM CDT Inhaled Oxygen Concentration - - Weight 71.8 kg (158 lb 3.2 oz) 11/19/2023 11:42 AM CDT Height 154.9 cm (5' 1 ) 10/20/2023 9:15 AM CDT Body Mass Index 29.89 10/20/2023 9:15 AM CDT Plan of Treatment Upcoming Encounters Date Type Department Care Team (Late st Contact Info) Description 08/30/2024 8:15 AM CDT Office Visit [facility] - [facility] Medicine [address] [place] [address] Taty Baker, ANIMAL CONTROL SPECIALIST-EVENT AV OPERATOR [address] [place] [address] Health Maintenance Due Date Last Done Comments DTAP/TDAP/TD VACCINES (1 - Tdap) 06/07/1954 ZOSTER VACCINE (2 of 3) 02/28/2010 01/03/2010, 01/03 Respiratory Syncytial Virus (RSV) Vaccine Pt: or over 60 yrs (1 - 1-dose 75+ series) 06/07/2010 MEDICARE AWV 12 MONTHS 11/04/2023 11/03/2022, 06/20/2021 COVID-19 VACCINE ( - season) 2023 01/26/2022, 03/18/2021, 05/15/2020, Additional history exists DEPRESSION SCREENING 04/05/2024 10/20/2023, 11/03/2022, 06/20/2021 INFLUENZA VACCINE (Season Ended) 2024 01/26/2022, 01/26/2022, 02/03/2021, Additional history exists BONE DENSITY TESTING Completed 01/05/2019, 12/22/2016, 06/27/2014, Additional history exists PNEUMOCOCCAL VACCINE 50+ Completed 06/20/2021, 04/2004 HEPATITIS B VACCINE Aged Out No longe r eligible based on patient's age to complete this topic HIB VACCINE Aged Out No longer eligi ble based on patient's age to complete this topic HPV VACCINE Aged Out No longer eligi ble based on patient's age to complete this topic MENINGOCOCCAL (Group B) VACCINE SHARED DECISION-MAKING Aged Out No longer eligible based on patient's age to complete this topic MENINGOCOCCAL GROUPS A/C/Y/W VACCINE Aged Out No longer eligible based on patient's age to complete this topic Insurance MEDICARE [facility] Care Teams Forestry Consultant Relationship Specialty Start Date End Date Taty Baker, ANIMAL CONTROL SPECIALIST-EVENT AV OPERATOR PCP - General Nurse Practitioner Family 06/20/21 Reinaldo Solorzano MD [address] [facility] [place] [id number] Orthopedic Surgery Orthopedic Surgery 10/20/23 Pato Munguia MD [address] [facility] [address] [place] [address] Gastroenterology 10/20/23
--- NOTE | 2024-08-06 04:12 | ED_ITS ---
HPI - General Adult General Chief complaint: Nausea/Vomiting/Diarrhea <Carter Chester MD - Last Filed: 08/10/24 05:17> Stated complaint: hematemesis <Carter Chester MD - Last Filed: 08/10/24 05:17> Time Seen by Provider: 08/06/24 03:20 <Carter Chester MD - Last Filed: 08/10/24 05:17> History of Present Illness HPI narrative: Patient is a 89-year-old female presents emergency department with chief complaint of nausea vomiting. Patient reports that she had multiple bouts of vomiting reports elective was blood in it. Patient reports she has epigastric discomfort <Carter Chester MD - Last Filed: 08/10/24 05:17> Related Data Home medications: Home Medications ?Medication ?Instructions ?Recorded ?Confirmed ?Last Taken ?Type atorvastatin 10 mg tablet 10 mg PO DAILY 08/06/24 08/06/24 Unknown History citalopram 20 mg tablet 20 mg PO DAILY 08/06/24 08/06/24 Unknown History levothyroxine 75 mcg tablet 75 mcg PO DAILY 08/06/24 08/06/24 Unknown History lorazepam 0.5 mg tablet 0.5 mg PO QID PRN agitation, 08/06/24 08/06/24 Unknown History anxiety <Carter Chester MD - Last Filed: 08/10/24 05:17> Allergies/adverse reactions: Allergies Allergy/AdvReac Type Severity Reaction Status Date / Time No Known Allergies Allergy Verified 08/07/24 14:13 <Carter Chester MD - Last Filed: 08/10/24 05:17> Review of Systems 2 Review of Systems: A 10 system review of systems was completed on the patient and is negative except for what is stated in the HPI. Nursing and ancillary documentation was reviewed. <Carter Chester MD - Last Filed: 08/10/24 05:17> PMFSH Past Medical History Medical History: Medical History Elevated lipase Hiatal hernia Coffee ground emesis <Carter Chester MD - Last Filed: 08/10/24 05:17> Social History Social History: Social History Smoking status: Former smoker Tobacco type: cigarettes Smoking end date: 08/06/24 Alcohol intake: never Substance use: never Do You Feel Safe in your Home?: Yes Lack of Transportation: No Lack of Food: Never True Current Housing: I Have Housing Concerned About Future Housing: No Difficulty Paying Gas/Electric Bills: No Difficulty Paying for Meds: No Currently Unemployed: No Education: Decline to Answer Difficulty w/ Childcare or Family Care: No Spiritual care concerns: No <Carter Chester MD - Last Filed: 08/10/24 05:17> Exam 2 Narrative: GENERAL: Well-appearing, well-nourished, and in no acute distress. HEAD: Normocephalic, atraumatic. EYES: PERRLA and EOMI. ENT: Nares clear, no rhinorrhea or epistaxis. Mucous membranes moist. NECK: Supple. CHEST: Clear to auscultation. No respiratory distress. HEART: Regular rate and rhythm. No murmur heard. Normal peripheral pulses. ABDOMEN: Soft, nontender, nondistended, normal active bowel sounds. EXTREMITIES: Normal range of motion. No edema. SKIN: Warm, dry, no rash. NEURO: No focal deficits. Alert and oriented x3. PSYCH: Normal mood and affect. <Carter Chester MD - Last Filed: 08/10/24 05:17> Course Consultations Consultation #1: Dr. Lopez Admit to hospitalist <Candelario Burton MD - Last Filed: 08/06/24 08:21> Date: 08/06/24 <Candelario Burton MD - Last Filed: 08/06/24 08:21> Vital Signs Vital signs: Vital Signs Temperature 36.1 C L 08/06/24 02:33 Pulse Rate 101 H 08/06/24 02:33 Respiratory Rate 17 08/06/24 02:33 Blood Pressure 145/86 H 08/06/24 02:33 Pulse Oximetry 100 08/06/24 02:33 Oxygen Delivery Room Air 08/06/24 02:33 Temperature 36.3 C L 08/07/24 14:19 Pulse Rate 60 08/07/24 15:28 Respiratory Rate 19 08/07/24 15:28 Blood Pressure 133/73 08/07/24 15:28 Pulse Oximetry 97 08/07/24 15:28 Oxygen Delivery Room Air 08/07/24 15:28 <Carter Chester MD - Last Filed: 08/10/24 05:17> Vital Signs Temperature 36.1 C L 08/06/24 02:33 Pulse Rate 101 H 08/06/24 02:33 Respiratory Rate 17 08/06/24 02:33 Blood Pressure 145/86 H 08/06/24 02:33 Pulse Oximetry 100 08/06/24 02:33 Oxygen Delivery Room Air 08/06/24 02:33 Temperature 36.3 C L 08/07/24 14:19 Pulse Rate 60 08/07/24 15:28 Respiratory Rate 19 08/07/24 15:28 Blood Pressure 133/73 08/07/24 15:28 Pulse Oximetry 97 08/07/24 15:28 Oxygen Delivery Room Air 08/07/24 15:28 <Candelario Burton MD - Last Filed: 08/06/24 08:21> Medical Decision Making MDM Narrative Medical decision making narrative: Differential diagnosis includes bowel obstruction, gastritis, CT scan showed evidence of possible gastric outlet obstruction with a hiatal hernia. Given this case was discussed with general surgery who recommended upper GI <Carter Chester MD - Last Filed: 08/10/24 05:17> Differential diagnosis includes bowel obstruction, gastritis, CT scan showed evidence of possible gastric outlet obstruction with a hiatal hernia. Given this case was discussed with general surgery who recommended upper GI Patient lipase level is 744, associated with nausea and vomiting, pancreatitis is high likely although CT scan of the abdomen did not show it. The plan to admit patient, observation, GI consult. Patient agreed <Candelario Burton MD - Last Filed: 08/06/24 08:21> Vital Signs Vital Signs: Vital Signs Temperature 36.1 C L 08/06/24 02:33 Pulse Rate 101 H 08/06/24 02:33 Respiratory Rate 17 08/06/24 02:33 Blood Pressure 145/86 H 08/06/24 02:33 Pulse Oximetry 100 08/06/24 02:33 Oxygen Delivery Room Air 08/06/24 02:33 Temperature 36.3 C L 08/07/24 14:19 Pulse Rate 60 08/07/24 15:28 Respiratory Rate 19 08/07/24 15:28 Blood Pressure 133/73 08/07/24 15:28 Pulse Oximetry 97 08/07/24 15:28 Oxygen Delivery Room Air 08/07/24 15:28 <Carter Chester MD - Last Filed: 08/10/24 05:17> Vital Signs Temperature 36.1 C L 08/06/24 02:33 Pulse Rate 101 H 08/06/24 02:33 Respiratory Rate 17 08/06/24 02:33 Blood Pressure 145/86 H 08/06/24 02:33 Pulse Oximetry 100 08/06/24 02:33 Oxygen Delivery Room Air 08/06/24 02:33 Temperature 36.3 C L 08/07/24 14:19 Pulse Rate 60 08/07/24 15:28 Respiratory Rate 19 08/07/24 15:28 Blood Pressure 133/73 08/07/24 15:28 Pulse Oximetry 97 08/07/24 15:28 Oxygen Delivery Room Air 08/07/24 15:28 <Candelario Burton MD - Last Filed: 08/06/24 08:21> Lab Data Result diagrams: 08/07/24 05:41 08/07/24 05:41 <Carter Chester MD - Last Filed: 08/10/24 05:17> Labs: Lab Results 08/06/24 08/06/24 08/07/24 Range/Units 03:25 04:40 05:41 WBC 8.5 6.6 (4.5-10.0) K/mm3 RBC 4.27 3.83 L (4.2-5.4) M/mm3 Hgb 12.5 11.2 L (12.0-15.0) g/dL Hct 39.3 36.6 L (37.0-47.0) % MCV 92.0 95.6 (80-100) fl MCH 29.3 29.2 (26-34) pg MCHC 31.8 L 30.6 L (32-36) g/dl RDW 12.5 12.6 (11.5-14.5) % Plt Count 245 226 (150-375) k/mm3 MPV 9.5 9.7 (7.4-10.4) fl Immature Gran % (Auto) 0.2 0.2 (0-0.5) % Neut % (Auto) 74.0 H 62.8 (45.5-73.1) % Lymph % (Auto) 14.4 L 22.3 (18.3-44.2) % Sampson % (Auto) 9.8 H 11.3 H (2.6-8.5) % Eos % (Auto) 0.9 2.6 (0-4.4) % Baso % (Auto) 0.7 0.8 (0.2-1.2) % Lymph # (Auto) 1.22 1.48 (0.9-3.2) K/mm3 Sampson # (Auto) 0.8 H 0.8 H (0.1-0.6) K/mm3 Eos # (Auto) 0.1 0.2 (0-0.3) K/mm3 Baso # (Auto) 0.1 0.1 (0.0-0.1) K/mm3 Abs Immat Gran (auto) 0.02 0.01 (0.00-0.031) K/mm3 Absolute Neuts (auto) 6.3 4.2 (1.3-6.7) K/mm3 Absolute Nucleated RBC 0.000 0.000 (0.0-0.012) K/mm3 Nucleated RBC % 0.0 0.0 (0.0-0.2) % PT 12.8 (11.1-14.7) Seconds INR 0.9 APTT 27.3 (22.3-36.8) Seconds Sodium 135 L 135 L (137-145) mmol/L Potassium 3.7 3.8 (3.4-5.0) mmol/L Chloride 100 104 (98-107) mmol/L Carbon Dioxide 26 26 (22-30) mmol/L Anion Gap 9 5 (4-12) mmol/L BUN 16 10 D (7-17) mg/dL Creatinine 1.09 H 0.91 (0.7-1.0) mg/dL Estim Creat Clear Calc 28 33 ml/min Estimated GFR 47 L 58 L (59 - ) Glucose 127 H 89 (65-110) mg/dL Calcium 8.9 8.6 (8.4-10.2) mg/dL Magnesium 2.2 (1.6-2.3) mg/dL Total Bilirubin 0.5 0.9 (0.2-1.3) mg/dL AST 28 27 (14-36) U/L ALT 16 13 (6-35) U/L Alkaline Phosphatase 74 55 (38-126) U/L Total Protein 7.0 7.0 (6.3-8.2) g/dL Albumin 4.1 3.6 (3.5-5.1) g/dL Lipase 744 H 52 (23-300) U/L Urine Color Yellow (Yellow) Urine Appearance Clear (Clear) Urine pH 8.0 (5.0-9.0) Ur Specific [place] 1.015 (1.001-1.035) Urine Protein Negative (Negative) mg/dL Urine Glucose (UA) Negative (Negative) mg/dL Urine Ketones Negative (Negative) mg/dL Ur Blood (Man) Negative (Negative) Urine Nitrate Negative (Negative) Urine Bilirubin Negative (Negative) Urine Urobilinogen 0.2 (<2.0) mg/dL Leukocyte Esterase Rfl Negative (Negative) DEEPAK/UL Blood Type A Positive Antibody Screen Negative <Carter Chester MD - Last Filed: 08/10/24 05:17> Lab Results 08/06/24 08/06/24 08/07/24 Range/Units 03:25 04:40 05:41 WBC 8.5 6.6 (4.5-10.0) K/mm3 RBC 4.27 3.83 L (4.2-5.4) M/mm3 Hgb 12.5 11.2 L (12.0-15.0) g/dL Hct 39.3 36.6 L (37.0-47.0) % MCV 92.0 95.6 (80-100) fl MCH 29.3 29.2 (26-34) pg MCHC 31.8 L 30.6 L (32-36) g/dl RDW 12.5 12.6 (11.5-14.5) % Plt Count 245 226 (150-375) k/mm3 MPV 9.5 9.7 (7.4-10.4) fl Immature Gran % (Auto) 0.2 0.2 (0-0.5) % Neut % (Auto) 74.0 H 62.8 (45.5-73.1) % Lymph % (Auto) 14.4 L 22.3 (18.3-44.2) % Sampson % (Auto) 9.8 H 11.3 H (2.6-8.5) % Eos % (Auto) 0.9 2.6 (0-4.4) % Baso % (Auto) 0.7 0.8 (0.2-1.2) % Lymph # (Auto) 1.22 1.48 (0.9-3.2) K/mm3 Sampson # (Auto) 0.8 H 0.8 H (0.1-0.6) K/mm3 Eos # (Auto) 0.1 0.2 (0-0.3) K/mm3 Baso # (Auto) 0.1 0.1 (0.0-0.1) K/mm3 Abs Immat Gran (auto) 0.02 0.01 (0.00-0.031) K/mm3 Absolute Neuts (auto) 6.3 4.2 (1.3-6.7) K/mm3 Absolute Nucleated RBC 0.000 0.000 (0.0-0.012) K/mm3 Nucleated RBC % 0.0 0.0 (0.0-0.2) % PT 12.8 (11.1-14.7) Seconds INR 0.9 APTT 27.3 (22.3-36.8) Seconds Sodium 135 L 135 L (137-145) mmol/L Potassium 3.7 3.8 (3.4-5.0) mmol/L Chloride 100 104 (98-107) mmol/L Carbon Dioxide 26 26 (22-30) mmol/L Anion Gap 9 5 (4-12) mmol/L BUN 16 10 D (7-17) mg/dL Creatinine 1.09 H 0.91 (0.7-1.0) mg/dL Estim Creat Clear Calc 28 33 ml/min Estimated GFR 47 L 58 L (59 - ) Glucose 127 H 89 (65-110) mg/dL Calcium 8.9 8.6 (8.4-10.2) mg/dL Magnesium 2.2 (1.6-2.3) mg/dL Total Bilirubin 0.5 0.9 (0.2-1.3) mg/dL AST 28 27 (14-36) U/L ALT 16 13 (6-35) U/L Alkaline Phosphatase 74 55 (38-126) U/L Total Protein 7.0 7.0 (6.3-8.2) g/dL Albumin 4.1 3.6 (3.5-5.1) g/dL Lipase 744 H 52 (23-300) U/L Urine Color Yellow (Yellow) Urine Appearance Clear (Clear) Urine pH 8.0 (5.0-9.0) Ur Specific [place] 1.015 (1.001-1.035) Urine Protein Negative (Negative) mg/dL Urine Glucose (UA) Negative (Negative) mg/dL Urine Ketones Negative (Negative) mg/dL Ur Blood (Man) Negative (Negative) Urine Nitrate Negative (Negative) Urine Bilirubin Negative (Negative) Urine Urobilinogen 0.2 (<2.0) mg/dL Leukocyte Esterase Rfl Negative (Negative) DEEPAK/UL Blood Type A Positive Antibody Screen Negative <Candelario Burton MD - Last Filed: 08/06/24 08:21> Critical Care Time Critical Care Time Critical Care Time: No <Candelario Burton MD - Last Filed: 08/06/24 08:21> Discharge Plan Discharge Clinical Impression: Vomiting, Pancreatitis <Carter Chester MD - Last Filed: 08/10/24 05:17> Patient Disposition: Still a Patient <Carter Chester MD - Last Filed: 08/10/24 05:17> Condition: Stable <Carter Chester MD - Last Filed: 08/10/24 05:17>
[2024-08-06 04:14] LABS: INR 0.9; Prothrombin Time 12.8 Seconds (11.1-14.7)
[2024-08-06 04:15] LABS: Partial Thromboplastin Time 27.3 Seconds (22.3-36.8)
[2024-08-06 04:48] LABS: Add Urine Microscopic? NO; Appearance Urine Clear (Clear); Bilirubin Urine Negative (Negative); Blood Urine Negative (Negative); Color Urine Yellow (Yellow); Glucose Urine UA Negative (Negative); Ketones Urine Negative (Negative); Leukocyte Esterase Ur Negative LEU/UL (Negative); Nitrate Urine Negative (Negative); Protein Urine Negative (Negative); Specific Grav Ur 1.015 (1.001-1.035); Urobilinogen Urine 0.2 mg/dL (<2.0)
--- NOTE | 2024-08-06 10:57 | ADMGEN ---
This patient, Frida Genao, was admitted to [address] [place] [address] Room 307-02. Patient/family oriented to hospital policies and general routines including ID bracelet, bed and alarms, visiting hours, pain management, procedures, bathroom and other care routines, personal items, smoking policy, room service/diet, and visiting hours. Information on how to activate the Rapid Response Team has been discussed. Patient/Family are encouraged to report perceived risks to care and to ask questions if they do not understand what they are told or what they should do.
[2024-08-06] MEDS: SODIUM CHLORIDE 0.9% IV 1,000 ML 100 ML IV CONT (11:27)
--- NOTE | 2024-08-06 11:34 | P.HP_ITS ---
H&P: HPI History of Present Illness Date/Time: 08/06/24 11:34 Chief Complaint: Coffee-ground emesis Narrative: [age] year old female past medical history of hyper thyroid disease, hyperlipidemia anxiety presented to to the ER account of coffee-ground emesis. Patient states she was in her usual state of hold until yesterday when she started vomiting she initially was clear but last few bouts had coffee ground emesis which prompted her to the ER for proper eval and care. That she had about 8 episodes, denies any abdominal pain no diarrhea no dysuria no chest pain or shortness of breath no lightheadedness, bloody stool. ER if are notable for blood pressure 155/89, labs hemoglobin 12.5 creatinine 1.09, sodium 135, Lipase 744 CT AP pending GI was consulted prior to admission Review of Systems Review of Systems: ALl other systems were reviewed and negative except as noted in the HPI above [facility] Social History Social History Smoking status: Former smoker Tobacco type: cigarettes Smoking end date: 08/06/24 Alcohol intake: never Substance use: never Do You Feel Safe in your Home?: Yes Lack of Transportation: No Lack of Food: Never True Current Housing: I Have Housing Concerned About Future Housing: No Difficulty Paying Gas/Electric Bills: No Difficulty Paying for Meds: No Currently Unemployed: No Education: Decline to Answer Difficulty w/ Childcare or Family Care: No Spiritual care concerns: No Meds Home Medications and Allergies Home Medications ?Medication ?Instructions ?Recorded ?Confirmed ?Type atorvastatin 10 mg tablet 10 mg PO DAILY 08/06/24 08/06/24 History citalopram 20 mg tablet 20 mg PO DAILY 08/06/24 08/06/24 History levothyroxine 75 mcg tablet 75 mcg PO DAILY 08/06/24 08/06/24 History lorazepam 0.5 mg tablet 0.5 mg PO QID PRN agitation, 08/06/24 08/06/24 History anxiety Allergies Allergy/AdvReac Type Severity Reaction Status Date / Time No Known Allergies Allergy Verified 08/06/24 02:33 Vital Signs Vital Signs - 24 hr 08/06/24 02:33 08/06/24 04:50 08/06/24 06:40 Temperature 97.0 F L Pulse Rate 101 H 79 74 Respiratory Rate 17 16 15 Blood Pressure 145/86 H 155/89 H 152/86 H Pulse Oximetry 100 97 95 Oxygen Delivery Room Air 08/06/24 07:14 08/06/24 10:18 Temperature Pulse Rate 67 63 Respiratory Rate 19 17 Blood Pressure 145/69 H 168/68 H Pulse Oximetry 97 100 Oxygen Delivery Exam Narrative: General: alert and comfortable Eyes: EOMI, PERRLA ENNT External ears normal, Neck is supple, no masses, Respiratory systems: Clear to auscultation Cardiovascular S1, S2, normal rhythm, no murmur, rub, or gallop; no thrill or palpable murmurs on palpation. Gastrointestinal: soft, non-tender, and non-distended abdomen with no masses; BS present Skin: no rash, lesions, ulcerations, subcutaneous nodules or induration Musculoskeletal: no abnormality and no tenderness, normal ROM Neurologic: Alert and oriented x3, non focal Mental Status Exam: normal affect H&P: Results Labs Labs: Short CBC 08/06/24 Range/Units 03:25 WBC 8.5 (4.5-10.0) K/mm3 Hgb 12.5 (12.0-15.0) g/dL Hct 39.3 (37.0-47.0) % Plt Count 245 (150-375) k/mm3 BMP 08/06/24 03:25 Sodium 135 L Potassium 3.7 Chloride 100 Carbon Dioxide 26 BUN 16 Creatinine 1.09 H Glucose 127 H Calcium 8.9 Liver Function 08/06/24 Range/Units 03:25 Total Bilirubin 0.5 (0.2-1.3) mg/dL AST 28 (14-36) U/L ALT 16 (6-35) U/L Alkaline Phosphatase 74 (38-126) U/L Albumin 4.1 (3.5-5.1) g/dL Urine 08/06/24 Range/Units 04:40 Urine Color Yellow (Yellow) Urine Appearance Clear (Clear) Urine pH 8.0 (5.0-9.0) Ur Specific [place] 1.015 (1.001-1.035) Urine Protein Negative (Negative) mg/dL Urine Glucose (UA) Negative (Negative) mg/dL Assessment and Plan Assessment and plan (1) GI bleed: Code(s): K92.2 - Gastrointestinal hemorrhage, unspecified Status: Acute Plan GI bleed Presented with Coffee-ground emesis CT AP pending Continue PPI, IVF and GI consulted Monitor Elevated lipase no abd pain or tenderness on palpation Elevated Blood pressure start lisinopril monitor Anxiety continue home meds Hypothyroidism Continue Levothyroxine monitor HLD Continue home meds DVT prophylaxis on SCDs, pending GI bleed eval Full code Surrogate decision maker Daughter Candy Genao
--- NOTE | 2024-08-06 13:26 | P.CONGI_ITS ---
Assessment and Plan Assessment and plan (1) Coffee ground emesis: Code(s): K92.0 - Hematemesis Status: Acute Assessment and Plan: comfortable, h/h stable will do EGD tomorrow to assess esophagitis, PUD, etc, also size of hiatal hernia (no clinical concern of SBO) iv protonix for now (2) Hiatal hernia: Code(s): K44.9 - Diaphragmatic hernia without obstruction or gangrene Status: Acute (3) Elevated lipase: Code(s): R74.8 - Abnormal levels of other serum enzymes Status: Acute Assessment and Plan: CT scan reviewed, noted elevated lipase but no abdominal pain, no signs of pancreatitis just atrophic pancreas tolerating liquid diet will monitor GI Consult Note Consult date/time: 08/06/24 13:26 Reason for consult: coffee ground emesis HPI: Frida Genao is a 89 year old female with history of hyperlipidemia, anxiety presented to to the ER with new onset of coffee-ground emesis. Yesterday with vomiting that initially was clear but then had more episodes turned coffee ground, total 8 times. Denies any abdominal pain, no diarrhea, no melena. She says that had similar episode 7-8 weeks ago when she was in [place] but did not seek medical help since resolved. Currently she is comfortable, had liquid diet. Labs reviewed, hemoglobin 12.5 creatinine 1.09, sodium 135, Lipase 744. CT a/p showed paraesophageal hiatal hernia, atrophic pancreas. Review of Systems 2 Constitutional: Constitutional: Denies chills Eyes: Eyes: Denies blurry vision ENT: Reports Normal hearing present Cardiovascular: Cardiovascular: Denies chest pain Respiratory: Respiratory: Denies cough Gastrointestinal: Gastrointestinal: Reports nausea and Reports vomiting Genitourinary: Genitourinary: Denies dysuria Musculoskeletal: Musculoskeletal: Denies neck pain Integumentary/Breasts: Skin/Breast: Denies rash Neurologic: Denies Abnormal speech present Psychiatric: Psychiatric: Denies behavioral changes [facility] Past Medical History Medical History (Updated 08/06/24 @ 13:30 by Gabriel Langston MD) Elevated lipase Hiatal hernia Coffee ground emesis Social History Social History Smoking status: Former smoker Tobacco type: cigarettes Smoking end date: 08/06/24 Alcohol intake: never Substance use: never Do You Feel Safe in your Home?: Yes Lack of Transportation: No Lack of Food: Never True Current Housing: I Have Housing Concerned About Future Housing: No Difficulty Paying Gas/Electric Bills: No Difficulty Paying for Meds: No Currently Unemployed: No Education: Decline to Answer Difficulty w/ Childcare or Family Care: No Spiritual care concerns: No Meds Home Medications and Allergies Home Medications ?Medication ?Instructions ?Recorded ?Confirmed ?Type atorvastatin 10 mg tablet 10 mg PO DAILY 08/06/24 08/06/24 History citalopram 20 mg tablet 20 mg PO DAILY 08/06/24 08/06/24 History levothyroxine 75 mcg tablet 75 mcg PO DAILY 08/06/24 08/06/24 History lorazepam 0.5 mg tablet 0.5 mg PO QID PRN agitation, 08/06/24 08/06/24 History anxiety Allergies Allergy/AdvReac Type Severity Reaction Status Date / Time No Known Allergies Allergy Verified 08/06/24 02:33 Vital Signs Vital Signs - 24 hr 08/06/24 02:33 08/06/24 04:50 08/06/24 06:40 Temperature 97.0 F L Pulse Rate 101 H 79 74 Respiratory Rate 17 16 15 Blood Pressure 145/86 H 155/89 H 152/86 H Pulse Oximetry 100 97 95 Oxygen Delivery Room Air 08/06/24 07:14 08/06/24 10:18 Temperature Pulse Rate 67 63 Respiratory Rate 19 17 Blood Pressure 145/69 H 168/68 H Pulse Oximetry 97 100 Oxygen Delivery Exam 2 Const: General: comfortable and no acute distress HENMT: Face/Nose/Sinus: Normal nares present Eyes: General: appearance normal, both eyes and all related structures Neck: Neck: supple Resp: Auscultation: clear to auscultation bilaterally Cardio: Rate: regular rate Rhythm: regular rhythm GI: Inspection: non-distended GI Palp: Yes Soft to palpation and No Tenderness to palpation present (GI) Auscultation: normal bowel sounds Skin: General skin exam: normal color Neuro: Speech: normal speech Motor exam (neuro): 5/5 motor strength present throughout Extrem: General: normal to inspection Psych: Mental Status: mental status grossly normal Results Labs 08/06/24 03:25 08/06/24 03:25 Labs: Short CBC 08/06/24 Range/Units 03:25 WBC 8.5 (4.5-10.0) K/mm3 Hgb 12.5 (12.0-15.0) g/dL Hct 39.3 (37.0-47.0) % Plt Count 245 (150-375) k/mm3 BMP 08/06/24 03:25 Sodium 135 L Potassium 3.7 Chloride 100 Carbon Dioxide 26 BUN 16 Creatinine 1.09 H Glucose 127 H Calcium 8.9 Liver Function 08/06/24 Range/Units 03:25 Total Bilirubin 0.5 (0.2-1.3) mg/dL AST 28 (14-36) U/L ALT 16 (6-35) U/L Alkaline Phosphatase 74 (38-126) U/L Albumin 4.1 (3.5-5.1) g/dL Urine 08/06/24 Range/Units 04:40 Urine Color Yellow (Yellow) Urine Appearance Clear (Clear) Urine pH 8.0 (5.0-9.0) Ur Specific [place] 1.015 (1.001-1.035) Urine Protein Negative (Negative) mg/dL Urine Glucose (UA) Negative (Negative) mg/dL
[2024-08-06] MEDS: lisinopriL 5 MG TABLET PO (13:37)
[2024-08-06] MEDS: SODIUM CHLORIDE 0.9% IV 1,000 ML 50 ML IV CONT (13:37)
[2024-08-06] MEDS: LORazepam (*CRX) 0.5 MG TABLET PO (19:12)
[2024-08-06] MEDS: ACETAMINOPHEN 500 MG TABLET PO (21:06)
[2024-08-07 06:00] VITALS: BP 153/79; PULSE 60; RESP 16; TEMP 36.3; O2SAT 97
[2024-08-07 06:08] LABS: Basophils Absolute Auto 0.1 K/mm3 (0.0-0.1); Basophils Percent Auto 0.8 % (0.2-1.2); Eosinophils Absolute Auto 0.2 K/mm3 (0-0.3); Eosinophils Percent Auto 2.6 % (0-4.4); Hematocrit 36.6 % (37.0-47.0); Hemoglobin 11.2 g/dL (12.0-15.0); Immature Granulocyte Absolute 0.01 K/mm3 (0.00-0.031); Immature Granulocyte Percent A 0.2 % (0-0.5); Lymphocytes Absolute Auto 1.48 K/mm3 (0.9-3.2); Lymphocytes Percent Auto 22.3 % (18.3-44.2); Mean Corpuscular HGB Conc 30.6 g/dl (32-36); Mean Corpuscular Hemoglobin 29.2 pg (26-34); Mean Corpuscular Volume 95.6 fl (80-100); Mean Platelet Volume 9.7 fl (7.4-10.4); Monocytes Absolute Auto 0.8 K/mm3 (0.1-0.6); Monocytes Percent Auto 11.3 % (2.6-8.5); Neutrophils Absolute Auto 4.2 K/mm3 (1.3-6.7); Neutrophils Percent Auto 62.8 % (45.5-73.1); Platelet Count Result 226 k/mm3 (150-375); Red Blood Count 3.83 M/mm3 (4.2-5.4); Red Cell Distribution Width 12.6 % (11.5-14.5); White Blood Count 6.6 K/mm3 (4.5-10.0)
[2024-08-07 06:31] LABS: Alanine Aminotransferase 13 U/L (6-35); Albumin Level 3.6 g/dL (3.5-5.1); Alkaline Phosphatase 55 U/L (38-126); Anion Gap 5 mmol/L (4-12); Aspartate Amino Transferase 27 U/L (14-36); Bilirubin,Total 0.9 mg/dL (0.2-1.3); Blood Urea Nitrogen 10 mg/dL (7-17); Calcium 8.6 mg/dL (8.4-10.2); Carbon Dioxide 26 mmol/L (22-30); Chloride 104 mmol/L (98-107); Estimated CRCL calculation 33 ml/min; Estimated Glomerular Filt Rate 58; Glucose 89 mg/dL (65-110); Lipase 52 U/L (23-300); Magnesium 2.2 mg/dL (1.6-2.3); Potassium 3.8 mmol/L (3.4-5.0); Sodium 135 mmol/L (137-145)
[2024-08-07] MEDS: ACETAMINOPHEN 500 MG TABLET PO (09:51)
[2024-08-07] MEDS: ATORVASTATIN 10 MG TABLET PO (09:51)
[2024-08-07] MEDS: lisinopriL 5 MG TABLET PO (09:51)
[2024-08-07] MEDS: LORazepam (*CRX) 0.5 MG TABLET PO (09:51)
[2024-08-07] MEDS: PANTOPRAZOLE SODIUM IV 40 MG VIAL IV PUSH (09:52)
[2024-08-07] MEDS: CITALOPRAM HYDROBROMIDE 20 MG TABLET PO (09:52)
[2024-08-07] MEDS: hydroCHLOROthiazide 12.5 MG CAPSULE PO (09:55)
[2024-08-07] MEDS: SODIUM CHLORIDE 0.9% IV 1,000 ML 50 ML IV CONT (11:32)
--- NOTE | 2024-08-07 13:06 | P.PNIM_ITS ---
Progress Note: A&P Assessment and Plan (1) GI bleed: Code(s): K92.2 - Gastrointestinal hemorrhage, unspecified Status: Acute Plan GI bleed Presented with Coffee-ground emesis CT AP pending Continue PPI, IVF EGD today GI following Monitor Elevated lipase no abd pain or tenderness on palpation Lipase 52 from 744, likely lab error initial result Hypertension Blood pressure persistently elevated COntinue Lisinopril and Started on HCTZ monitor Anxiety continue home meds Hypothyroidism Continue Levothyroxine monitor HLD Continue home meds DVT prophylaxis on SCDs, pending GI bleed eval Full code discharged pending GI recs Subjective Date/time seen: 08/07/24 13:06 Interval history: Comfortable at bedside Review of Systems Review of Systems: ALl other systems were reviewed and negative except as noted in the HPI above Exam Narrative: General: alert and comfortable Eyes: EOMI, PERRLA ENNT External ears normal, Neck is supple, no masses, Respiratory systems: Clear to auscultation Cardiovascular S1, S2, normal rhythm, no murmur, rub, or gallop; no thrill or palpable murmurs on palpation. Gastrointestinal: soft, non-tender, and non-distended abdomen with no masses; BS present Skin: no rash, lesions, ulcerations, subcutaneous nodules or induration Musculoskeletal: no abnormality and no tenderness, normal ROM Neurologic: Alert and oriented x3, non focal Mental Status Exam: normal affect Objective Data Vital Signs Vital Signs: Vital Signs - 24 hr 08/06/24 14:00 08/06/24 21:01 08/07/24 06:00 Temperature 97.3 F L 97.7 F 97.4 F L Pulse Rate 75 66 60 Respiratory Rate 20 14 16 Blood Pressure 152/71 H 156/82 H 153/79 H Pulse Oximetry 98 98 97 Intake/Output Intake/Output: Intake & Output 08/04/24 08/05/24 08/06/24 08/07/24 23:59 23:59 23:59 23:59 Intake Total 1576.7 1200 Balance 1576.7 1200 Meds/Results Medications: Active Medications Generic Name Dose Route Start Last Admin Trade Name Freq PRN Reason Stop Dose Admin Acetaminophen 500 mg 08/06/24 20:35 08/07/24 09:51 Acetaminophen 500 Mg Tablet PO 500 mg Q6H PRN Administration Mild Pain (1-3) or Fever Atorvastatin Calcium 10 mg 08/07/24 09:00 08/07/24 09:51 Atorvastatin 10 Mg Tablet PO 10 mg DAILY GRANT Administration Citalopram Hydrobromide 20 mg 08/07/24 09:00 08/07/24 09:52 Citalopram Hydrobromide 20 Mg Tablet PO 20 mg DAILY GRANT Administration Hydralazine HCl 10 mg 08/06/24 11:31 Hydralazine Hcl 20 Mg/Ml Vial IV PUSH Q8H PRN Systolic BP >160 Hydrochlorothiazide 12.5 mg 08/07/24 09:00 08/07/24 09:55 Hydrochlorothiazide 12.5 Mg Capsule PO 12.5 mg QAM GRANT Administration Sodium Chloride 1,000 mls @ 50 mls/hr 08/06/24 08:20 08/07/24 11:32 Normal Saline Iv IV CONT 50 mls/hr .Q20H GRANT Administration Levothyroxine Sodium 75 mcg 08/07/24 06:30 08/07/24 06:45 Levothyroxine Sodium 75 Mcg Tablet PO Not Given DAILY@0630 GRANT Lisinopril 5 mg 08/06/24 12:05 08/07/24 09:51 Lisinopril 5 Mg Tablet PO 5 mg QAM GRANT Administration Lorazepam 0.5 mg 08/06/24 11:32 08/07/24 09:51 Lorazepam (*Crx) 0.5 Mg Tablet PO 0.5 mg QID PRN Administration agitation, anxiety Ondansetron HCl 4 mg 08/06/24 08:17 Ondansetron Inj 4 Mg/2 Ml Vial IV PUSH Q4H PRN Nausea Pantoprazole Sodium 40 mg 08/06/24 21:00 08/07/24 09:52 Pantoprazole Sodium Iv 40 Mg Vial IV PUSH 40 mg Q12HR GRANT Administration Radiology Results: ITS Impressions Abdomen/Pelvis CT 08/06/24 11:40 IMPRESSION: 1. Paraesophageal hernia with organoaxial rotation of the stomach and possible outlet obstruction further evaluation advised. 2. Minimal fullness of the renal pelvis bilaterally with no definite stones. Follow-up advised. 3. No evidence of appendicitis, diverticulitis or intestinal obstruction Upper GI Series 08/07/24 10:22 IMPRESSION: 1. Large sliding-type hiatal hernia without evidence of gastroesophageal reflux or gastric outlet obstruction. Labs Labs: Laboratory Results - last 24 hr 08/07/24 05:41 WBC 6.6 RBC 3.83 L Hgb 11.2 L Hct 36.6 L MCV 95.6 MCH 29.2 MCHC 30.6 L RDW 12.6 Plt Count 226 MPV 9.7 Immature Gran % (Auto) 0.2 Neut % (Auto) 62.8 Lymph % (Auto) 22.3 [place] % (Auto) 11.3 H Eos % (Auto) 2.6 Baso % (Auto) 0.8 Lymph # (Auto) 1.48 [place] # (Auto) 0.8 H Eos # (Auto) 0.2 Baso # (Auto) 0.1 Abs Immat Gran (auto) 0.01 Absolute Neuts (auto) 4.2 Absolute Nucleated RBC 0.000 Nucleated RBC % 0.0 Sodium 135 L Potassium 3.8 Chloride 104 Carbon Dioxide 26 Anion Gap 5 BUN 10 D Creatinine 0.91 Estim Creat Clear Calc 33 Estimated GFR 58 L Glucose 89 Calcium 8.6 Magnesium 2.2 Total Bilirubin 0.9 AST 27 ALT 13 Alkaline Phosphatase 55 Total Protein 7.0 Albumin 3.6 Lipase 52
--- NOTE | 2024-08-07 14:17 | P.PNAN_ITS ---
Anes - Initial Pre Proc Eval Procedure: Operation Date: 08/07/24 17:00 Proposed Procedures p Esophagogastroduodenoscopy - Gabriel Langston MD Date/Time: 08/07/24 14:17 Surgeon: Wood Davis MD Pre Op Diagnosis: Vomiting, elevated lipase Patient Data Age: 89 Gender: F Height: 1.55 m Weight: 72.3 kg Last Vital Signs Temp 97.4 F L 08/07/24 06:00 Pulse 60 08/07/24 06:00 Resp 16 08/07/24 06:00 BP 153/79 H 08/07/24 06:00 Pulse Ox 97 08/07/24 06:00 O2 Del Method Room Air 08/06/24 02:33 Allergies Allergy/AdvReac Type Severity Reaction Status Date / Time No Known Allergies Allergy Verified 08/07/24 14:13 Home Medications ?Medication ?Instructions ?Recorded ?Confirmed ?Type atorvastatin 10 mg tablet 10 mg PO DAILY 08/06/24 08/06/24 History citalopram 20 mg tablet 20 mg PO DAILY 08/06/24 08/06/24 History levothyroxine 75 mcg tablet 75 mcg PO DAILY 08/06/24 08/06/24 History lorazepam 0.5 mg tablet 0.5 mg PO QID PRN agitation, 08/06/24 08/06/24 History anxiety Laboratory Tests 08/07/24 05:41 WBC 6.6 K/mm3 (4.5-10.0) RBC 3.83 L M/mm3 (4.2-5.4) Hgb 11.2 L g/dL (12.0-15.0) Hct 36.6 L % (37.0-47.0) MCV 95.6 fl (80-100) MCH 29.2 pg (26-34) MCHC 30.6 L g/dl (32-36) RDW 12.6 % (11.5-14.5) Plt Count 226 k/mm3 (150-375) MPV 9.7 fl (7.4-10.4) Immature Gran % (Auto) 0.2 % (0-0.5) Neut % (Auto) 62.8 % (45.5-73.1) Lymph % (Auto) 22.3 % (18.3-44.2) [place] % (Auto) 11.3 H % (2.6-8.5) Eos % (Auto) 2.6 % (0-4.4) Baso % (Auto) 0.8 % (0.2-1.2) Lymph # (Auto) 1.48 K/mm3 (0.9-3.2) [place] # (Auto) 0.8 H K/mm3 (0.1-0.6) Eos # (Auto) 0.2 K/mm3 (0-0.3) Baso # (Auto) 0.1 K/mm3 (0.0-0.1) Abs Immat Gran (auto) 0.01 K/mm3 (0.00-0.031) Absolute Neuts (auto) 4.2 K/mm3 (1.3-6.7) Absolute Nucleated RBC 0.000 K/mm3 (0.0-0.012) Nucleated RBC % 0.0 % (0.0-0.2) Sodium 135 L mmol/L (137-145) Potassium 3.8 mmol/L (3.4-5.0) Chloride 104 mmol/L (98-107) Carbon Dioxide 26 mmol/L (22-30) Anion Gap 5 mmol/L (4-12) BUN 10 D mg/dL (7-17) Creatinine 0.91 mg/dL (0.7-1.0) Estim Creat Clear Calc 33 ml/min Estimated GFR 58 L (59 - ) Glucose 89 mg/dL (65-110) Calcium 8.6 mg/dL (8.4-10.2) Magnesium 2.2 mg/dL (1.6-2.3) Total Bilirubin 0.9 mg/dL (0.2-1.3) AST 27 U/L (14-36) ALT 13 U/L (6-35) Alkaline Phosphatase 55 U/L (38-126) Total Protein 7.0 g/dL (6.3-8.2) Albumin 3.6 g/dL (3.5-5.1) Lipase 52 U/L (23-300) Patient hx anesthesia problems: none Family hx anesthesia problems: none Results Review: All pre-operative results and documents have been reviewed as part of the pre- operative evaluation. [facility] Past Medical History Medical History Elevated lipase Hiatal hernia Coffee ground emesis Social History Social History Smoking status: Former smoker Tobacco type: cigarettes Smoking end date: 08/06/24 Alcohol intake: never Substance use: never Do You Feel Safe in your Home?: Yes Lack of Transportation: No Lack of Food: Never True Current Housing: I Have Housing Concerned About Future Housing: No Difficulty Paying Gas/Electric Bills: No Difficulty Paying for Meds: No Currently Unemployed: No Education: Decline to Answer Difficulty w/ Childcare or Family Care: No Spiritual care concerns: No Anes - Eval Final PreProcedure Day of Procedure 08/07/24 14:17 Patient weight: obese Lungs: normal air movement Airway: Mallampati scale class II and special considerations (Missing several teeth. ) Neurological: alert and oriented Last oral intake: >/= 8 hours ASA classification: III Emergent: no Anesthetic plan: proceed Anesthesia type and monitoring: general GIVS and standard monitoring Results Review: All pre-operative results and documents have been reviewed as part of the pre- operative evaluation. HTN, hyperlipidemia, hypothyroidism, pt w anemia after having coffee ground emesis. Overall active 89 yo, walks 1-2 fos, travels to [place], without major limitations. Informed Consent: The patient's anesthetic plan and its attendant risks and benefits were discussed with the patient/family/POA. Questions were solicited and answers provided to the satisfaction of the patient/family/POA.
[2024-08-07 14:19] VITALS: BP 150/66; PULSE 62; RESP 18; TEMP 36.3; O2SAT 97
[2024-08-07] MEDS: LACTATED RINGERS 1,000 ML 150 ML IV CONT (14:27)
[2024-08-07 15:08] VITALS: BP 134/66; PULSE 95; RESP 25; O2SAT 93
[2024-08-07 15:18] VITALS: BP 125/69; PULSE 87; RESP 20; O2SAT 95
[2024-08-07 15:28] VITALS: BP 133/73; PULSE 60; RESP 19; O2SAT 97
--- NOTE | 2024-08-07 18:39 | P.DS_ITS ---
DS: Admitting Diagnosis Discharge Date 08/07/24 Admitting Diagnosis Coffee ground emesis DS: Discharge Diagnosis Discharge Diagnosis (1) Coffee ground emesis: Code(s): K92.0 - Hematemesis Status: Acute DS: Summary Hospital Course Hospital Course: [age] year old female past medical history of hyper thyroid disease, hyperlipidemia anxiety presented to to the ER account of coffee-ground emesis. Patient states she was in her usual state of hold until yesterday when she started vomiting she initially was clear but last few bouts had coffee ground emesis which prompted her to the ER for proper eval and care. That she had about 8 episodes, denies any abdominal pain no diarrhea no dysuria no chest pain or shortness of breath no lightheadedness, bloody stool. 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 Started on Protonix IV bid, GI was consulted. GI was consulted and patient underwent EGD which showed Reflux esophagitis, hiatal hernia and gastritis. recommended PPI, she ate adn tolerated diet. Discharged on PPI daily per GI F/u with PCP in 3-5 days F/u with GI as instructed Time Spent with Patient Time attestation: Total time spent providing and/or coordinating discharge services: DS: Data Data Completed and Pending Pending studies at discharge: Pending at discharge 08/07/24 15:09 Surgical [PTH] Routine Labs on day of discharge: Labs from last 24 hours 08/07/24 05:41 WBC 6.6 RBC 3.83 L Hgb 11.2 L Hct 36.6 L MCV 95.6 MCH 29.2 MCHC 30.6 L RDW 12.6 Plt Count 226 MPV 9.7 Immature Gran % (Auto) 0.2 Neut % (Auto) 62.8 Lymph % (Auto) 22.3 [place] % (Auto) 11.3 H Eos % (Auto) 2.6 Baso % (Auto) 0.8 Lymph # (Auto) 1.48 [place] # (Auto) 0.8 H Eos # (Auto) 0.2 Baso # (Auto) 0.1 Abs Immat Gran (auto) 0.01 Absolute Neuts (auto) 4.2 Absolute Nucleated RBC 0.000 Nucleated RBC % 0.0 Sodium 135 L Potassium 3.8 Chloride 104 Carbon Dioxide 26 Anion Gap 5 BUN 10 D Creatinine 0.91 Estim Creat Clear Calc 33 Estimated GFR 58 L Glucose 89 Calcium 8.6 Magnesium 2.2 Total Bilirubin 0.9 AST 27 ALT 13 Alkaline Phosphatase 55 Total Protein 7.0 Albumin 3.6 Lipase 52 Discharge Plan Discharge Attending physician on discharge: Wood Davis Consulting providers: Familia Dolan; Gabriel Langston Discharging Clinician: Wood Davis Anticipated Discharge Date/Time: 08/07/24 18:37 Patient Disposition: Home Activity: as tolerated Diet: as tolerated and regular Patient Instructions: Antibiotic Form Patient Language: Mohawk Stand Alone Forms: General Discharge Information Follow-up/Referrals: PHYSICIAN NOT ON STAFF,NONSTAFF [Primary Care Provider] - (F/u with PCP in 3-5 days ) Gabriel Langston MD [Physician] - (F/u with GI as instructed ) Discharge Medications: New hydrochlorothiazide 12.5 mg Capsule 12.5 mg PO QAM 30 Days Qty: 30 1RF pantoprazole 40 mg Tablet,Delayed Release (Dr/Ec) 40 mg PO QAM 30 Days Qty: 30 1RF lisinopril 5 mg Tablet 5 mg PO QAM 30 Days Qty: 30 1RF Continued levothyroxine 75 mcg tablet 75 mcg PO DAILY citalopram 20 mg tablet 20 mg PO DAILY atorvastatin 10 mg tablet 10 mg PO DAILY lorazepam 0.5 mg tablet 0.5 mg PO QID PRN (Reason: agitation, anxiety) Date of admission: 08/07/24 13:50 Primary Care Provider: PHYSICIAN NOT ON STAFF,NONSTAFF Admitting Provider: Wood Davis Attending physician on admission: Wood Davis Condition: Stable
== END 2024-08-07 19:00 | disposition home or self-care (01) | DRG 391 ==
LOC: ANHED 08:16 → ANH3MEDSUR 10:07
PROVIDERS: Emergency Medicine; Internal Medicine Gastroenterology; Admitting Provider Internal Medicine; Emergency Provider Emergency Medicine; Visit Provider Internal Medicine
PROC: 0DJ08ZZ Inspection of Upper Intestinal Tract, Via Natural or Artificial Opening Endoscopic (ICD-10-PCS; principal; 2024-08-07 17:00)
DX: K44.9 Diaphragmatic hernia without obstruction or gangrene (principal); K21.01 Gastro-esophageal reflux disease with esophagitis, with bleeding; K92.0 Hematemesis; K29.70 Gastritis, unspecified, without bleeding; I10 Essential (primary) hypertension; E78.5 Hyperlipidemia, unspecified; E03.9 Hypothyroidism, unspecified; F41.9 Anxiety disorder, unspecified; Z87.891 Personal history of nicotine dependence
CPT/HCPCS: 36415; 74177; 74240; 80053; 81003; 83690; 83735; 85025; 85610; 85730; 86850; 86900; 86901; 88305; 96361; 96374; 96375; 96376; 99285; A9270; G0378; J2405; J2470; J2704; J7030; J7120; Q9967